=== PATIENT | male | born 1965 | race Caucasian/White ===

== ENCOUNTER 2018-06-10 02:09 | Emergency (ER) | payer OTHER ==
[2018-06-10 02:15] VITALS: BP 148/85
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
== END 2018-06-10 03:43 | disposition home or self-care (01) ==
LOC: ED 02:09
DX: F43.20 Adjustment disorder, unspecified (principal); F17.210 Nicotine dependence, cigarettes, uncomplicated
CPT/HCPCS: 99282

== ENCOUNTER 2018-07-22 14:37 | Emergency (ER) | payer OTHER ==
[2018-07-22 14:47] VITALS: BP 149/88
--- NOTE | 2018-07-22 15:29 | ED ---
Throat Pain/Nasal Congestion - HPI Summary HPI Summary: Patient is a 53-year-old male with hx of HTN presenting to the ED with complaints of red eyes that began today. Patient notes he has heard this from multiple people. Patient denies any pain or vision changes. Denies discharge, hemorrhage, pruritis, blurred vision, or diplopia. Denies headache or dizziness. Patient notes he has been under a lot of stress recently due to a divorce, estimates sleeping 2-3 hours/night for the past week and has been drinking mostly coffee. Does not wear glasses, and has never been evaluated by ophthalmology. Currently being evaluated for diabetes and taking metformin. - History of Current Complaint Chief Complaint: EDEyeProblem Time Seen by Provider: 07/22/18 15:00 Hx Obtained From: Patient Onset/Duration: Sudden Onset Severity: Mild Associated Signs And Symptoms: Positive: Negative - Allergies/Home Medications Allergies/Adverse Reactions: Allergies Allergy/AdvReac Type Severity Reaction Status Date / Time No Known Allergies Allergy Verified 03/29/15 12:50 PMH/Surg Hx/FS Hx/Imm Hx Previously Healthy: Yes Endocrine/Hematology History: Reports: Hx Diabetes - Being evaluated for hyperglycemia Cardiovascular History: Reports: Hx Hypertension - not medicated - Surgical History Surgery Procedure, Year, and Place: bilat carpal tunnel Infectious Disease History: No Infectious Disease History: Denies: Traveled Outside the [place] in Last 30 Days - Family History Known Family History: Negative: Cardiac Disease, Hypertension - Social History Alcohol Use: Rare Substance Use Type: Reports: None Smoking Status (MU): Heavy Every Day Tobacco Smoker Type: Cigarettes Amount Used/How Often: 1 - 1 1/2 ppd Length of Time of Smoking/Using Tobacco: 30 years Have You Smoked in the Last Year: Yes Review of Systems Constitutional: Negative Positive: Erythema. Negative: Photophobia, Blurred Vision, Diplopia, Drainage ENT: Negative Cardiovascular: Negative Respiratory: Negative Gastrointestinal: Negative Genitourinary: Negative Skin: Negative Neurological: Negative Psychological: Normal All Other Systems Reviewed And Are Negative: Yes Physical Exam Triage Information Reviewed: Yes Vital Signs On Initial Exam: Initial Vitals Temp Pulse Resp BP Pulse Ox 97.7 F 83 18 149/88 95 07/22/18 14:38 07/22/18 14:38 07/22/18 14:38 07/22/18 14:38 07/22/18 14:38 Vital Signs Reviewed: Yes Appearance: Positive: Well-Appearing, Well-Nourished Skin: Positive: Warm, Dry Head/Face: Positive: Normal Head/Face Inspection Eyes: Positive: EOMI, KELLEN, Conjunctiva Inflammed - Conjunctiva with mild injection, bilaterally.. Negative: Discharge ENT: Positive: Normal ENT inspection, Hearing grossly normal Respiratory/Lung Sounds: Positive: Clear to Auscultation, Breath Sounds Present Cardiovascular: Positive: Normal, RRR Abdomen Description: Positive: Nontender, Soft Musculoskeletal: Positive: Normal, Strength/ROM Intact Neurological: Positive: Normal, Sensory/Motor Intact, Alert, Oriented to Person Place, Time, CN Intact II-III Psychiatric: Positive: Normal AVPU Assessment: Alert Diagnostics - Vital Signs Vital Signs Temp Pulse Resp BP Pulse Ox 07/22/18 14:38 97.7 F 83 18 149/88 95 - Laboratory Lab Statement: Any lab studies that have been ordered have been reviewed, and results considered in the medical decision making process. EENT Course/Dx - Course Course Of Treatment: 53 year old mear male presents with eye redness today. He states that people noticed it and was having no sx. He denies any pain. No change in vision. Did not get anything in his eye. Denies any allergy symptoms. Is under a lot of stress and has been drinking a lot coughing. On exam both conjunctivae are injected. No discharge. No foreign body noted. Eyes are reactive. Extraocular movements intact. Visual acuity 20/30 and 20/ 25 noted. discussed if develops any visual changes or pain to follow up with optho. no signs of glaucoma or other pathology on exam. patient understand and agrees with plan. - Differential Diagnoses Differential Diagnoses: Conjunctivitis, Corneal Abrasion, Glaucoma - Diagnoses Provider Diagnoses: Redness of both eyes Discharge - Sign-Out/Discharge Documenting (check all that apply): Patient Departure Patient Received Moderate/Deep Sedation with Procedure: No - Discharge Plan Condition: Good Disposition: HOME Referrals: No Primary Care Phys,NOPCP [Primary Care Provider] - Brayan Bassett MD [Medical Doctor] - Additional Instructions: Follow up with optho if any pain or change in visual acuity Can use saline in eyes as needed Return to ED if develop any new or worsening symptoms - Billing Disposition and Condition Condition: GOOD Disposition: Home
== END 2018-07-22 15:50 | disposition home or self-care (01) ==
LOC: ED 14:37
DX: H57.89 Other specified disorders of eye and adnexa (principal); F17.210 Nicotine dependence, cigarettes, uncomplicated
CPT/HCPCS: 99281